=== PATIENT | female | born 1970 | race Caucasian/White ===

== ENCOUNTER → 2020-04-19 | Outpatient (CLI) | payer OTHER ==
--- NOTE | 2020-04-19 12:48 | CARD ---
MR#: [id number] Date of Study: 04/19/2020 Ordering Physician: KASEY OLVERA, Referring Physician: KASEY OLVERA, Tech: Julia Parkinson APPROVED REPORT EXAM: Two-dimensional and M-mode echocardiogram with Doppler and color Doppler. Other Information Quality : AverageHR: 74bpm INDICATION Dyspnea Murmur RISK FACTORS Hypertension 2D DIMENSIONS RVDd3.1 (2.9-3.5cm)Left Atrium(2D)4.2 (1.6-4.0cm) IVSd1.1 (0.7-1.1cm)Aortic Root(2D)3.0 (2.0-3.7cm) LVDd4.6 (3.9-5.9cm)LVOT Diameter2.0 (1.8-2.4cm) PWd1.0 (0.7-1.1cm)LVDs2.3 (2.5-4.0cm) FS (%) 49.8 %SV78.4 ml LVEF(%)81.2 (>50%) Aortic Valve AoV Peak Jose Manuel.148.3cm/sAoV VTI27.3cm AO Peak GR.8.8mmHgLVOT Peak Jose Manuel.104.8cm/s LVOT VTI 24.43cmAO Mean GR.4mmHg SVETA (VMAX)1.54mh1LAX (VTI)2.75cm2 Mitral Valve MV E Djzwgycf33.1cm/sMV DECEL [id number] MV A Ionwcjrn82.1cm/sMV E Mean Gr.2mmHg MV ABT66xoI/A Ratio1.3 MVA (PHT)3.18cm2 TDI E/Lateral E'7.1E/Medial E'8.0 Pulmonary Valve PV Peak Cygtomuc490.3cm/sPV Peak Grad.5mmHg Tricuspid Valve TR P. Spkrwhmi867pt/sRAP IVKBCEHP9xmIa TR Peak Gr.83odUjJYNY00caMa Pulmonary Vein S1 Mxtiyzxp80.7cm/sD2 Ansjrxlb74.0cm/s PVa [id number] LEFT VENTRICLE The left ventricle is normal size. There is normal left ventricular wall thickness. The left ventricu lar systolic function is normal and the ejection fraction is within normal range. The Ejection Fracti on is 65%. There is normal LV segmental wall motion. Transmitral Doppler flow pattern is Grade II-pse udonormal filling dynamics. RIGHT VENTRICLE The right ventricle is normal size. There is normal right ventricular wall thickness. The right ventr icular systolic function is normal. ATRIA The left atrium size is normal. The right atrium size is normal. The interatrial septum is intact wit h no evidence for an atrial septal defect or patent foramen ovale as noted on 2-D or Doppler imaging. AORTIC VALVE The aortic valve is normal in structure and function. Doppler and Color Flow revealed no significant aortic regurgitation. There is no significant aortic valvular stenosis. MITRAL VALVE The mitral valve is normal in structure and function. There is no evidence of mitral valve prolapse. There is no mitral valve stenosis. Doppler and Color-flow revealed trace mitral regurgitation. TRICUSPID VALVE The tricuspid valve is normal in structure and function. Doppler and Color Flow revealed trace tricus pid regurgitation with an estimated PAP of 34 mmHg. There is no tricuspid valve stenosis. PULMONIC VALVE The pulmonic valve is not well visualized. Doppler and Color Flow revealed no pulmonic valvular regur gitation. There is no pulmonic valvular stenosis. GREAT VESSELS The aortic root is normal in size. The ascending aorta is normal in size. The IVC is normal in size a nd collapses >50% with inspiration. PERICARDIAL EFFUSION There is no evidence of significant pericardial effusion. Critical Notification Critical Value: No <Conclusion> The left ventricular systolic function is normal and the ejection fraction is within normal range. Th e Ejection Fraction is 65%. There is normal LV segmental wall motion. Signed by : Jordin Villagomez, Electronically Approved : 04/19/2020 12:47:52
== END ==
LOC: ECHO 10:53
PROVIDERS: ATTEND Internal Medicine Cardiovascular Disease
DX: R06.02 Shortness of breath (principal); R01.1 Cardiac murmur, unspecified
CPT/HCPCS: 93306

== ENCOUNTER → 2021-09-10 | Outpatient (CLI) | payer OTHER ==
--- NOTE | 2021-09-11 17:03 | RAD ---
MR#: [id number] Date of Study: 09/10/2021 Ordering Physician: KASEY OLVERA, Referring Physician: KASEY OLVERA, Tech: Julia Bowman, MANUEL, RVT, RTR APPROVED REPORT Patient Location: OUT-PATIENT Indications Claudication:Bilaterally SEVERE FOOT PAIN VELOCITY AND DOPPLER WAVEFORM ANALYSIS RIGHT cm/secWaveformSeverity LEFT cm/secWaveform Severity pCFA 119.4pCFA 147.2 Prof Fem Art. 83.3Prof Fem Art. 87.9 Fem Art Prox. 96.2Fem Art Prox. 93.5 Fem Art Mid. 111.1Fem Art Mid. 95.3 Fem Art Dist. 90.7Fem Art Dist. 89.8 Pop Art(AK) 60.7Pop Art(AK) 81.4 [employer]LE [employer]ER Prox. 51.2PTA Prox. 52.1 STAPLE [employer] W[employer]ER Dist. 15.8PTA Dist. 14.7 Per Art Prox. 53.7Per Art Prox. 51.5 KEVIN Prox. 46.7ATA Prox. 51.5 DPA 65DPA 34 Findings Grayscale images the bilateral lower extremity arterial vessels demonstrate mild diffuse atherosclero tic plaque. Waveforms are mostly triphasic and biphasic above the knee. There was no obstruction above the knee bilaterally. Below the knee there are diminished waveforms and velocities in the distal posterior tibial artery walters ggestive of greater than 50% stenosis but otherwise there is two-vessel robust runoff in the form of peroneal and anterior tibial vessels. Critical Notification Critical Value: No <Conclusion> 1. No significant above-knee disease bilaterally 2. 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 Clinical correlation recommended Signed by : Jordin Villagomez, Electronically Approved : 09/11/2021 17:03:01
== END ==
LOC: US 12:58
PROVIDERS: ATTEND Internal Medicine Cardiovascular Disease
DX: I70.203 Unspecified atherosclerosis of native arteries of extremities, bilateral legs (principal); R06.9 Unspecified abnormalities of breathing
CPT/HCPCS: 93925

== ENCOUNTER → 2021-09-25 | Outpatient (CLI) | payer OTHER ==
--- NOTE | 2021-09-25 09:44 | RAD ---
MR#: [id number] Date of Study: 09/25/2021 Ordering Physician: KASEY OLVERA, Referring Physician: KASEY OLVERA, Tech: Mary Fair RVT, [facility] APPROVED REPORT Patient Location : OUT-PATIENT Indications Lower Extremity Edema : Findings Limited grayscale images of the bilateral saphenofemoral junctions are grossly unremarkable. The right great saphenous vein measures 7.2 mm and the left great saphenous vein measures 3.7 mm. No evidence of reflux in the bilateral greater and lesser saphenous veins. Critical Notification Critical Value: No <Conclusion> 1. Negative for reflux in the bilateral greater and lesser saphenous veins. Signed by : Jordin Villagomez, Electronically Approved : 09/25/2021 09:43:54
--- NOTE | 2021-09-25 09:46 | RAD ---
MR#: [id number] Date of Study: 09/25/2021 Ordering Physician: KASEY OLVERA, Referring Physician: KASEY OLVERA, Tech: Mary Fair RVT, [facility] APPROVED REPORT Bilateral Lower Extremity Venous Study for DVT Patient Location: OUT-PATIENT Indications Lower Extremity Edema: Vein Imaging (Right) CFV (R): Compressible SFJ (R): Compressible FEM (R): Compressible POP (R): Compressible DFV (R): Compressible PTV (R): Compressible GSV (R): Compressible Peroneals (R): Compressible Vein Imaging (Left) CFV (L): Compressible SFJ (L): Compressible FEM (L): Compressible POP (L): Compressible DFV (L): Compressible PTV (L): Compressible GSV (L): Compressible Peroneals (L): Compressible Doppler Evaluation (Right) CFV (R): Phasic POP (R):Phasic Doppler Evaluation (Left) CFV (L):Phasic POP (L):Phasic Findings Grayscale images of the bilateral deep veins of the lower extremities were technically limited. Grossly no obvious thrombus with normal compressibility is noted in the bilateral common femoral, pop liteal veins. The bilateral superficial femoral veins were not well visualized but grossly appear to be compressibl e with normal phasic flow. Bilateral below-knee veins demonstrate spontaneous flow but were not well visualized. Critical Notification Critical Value: No <Conclusion> 1. Grossly no evidence of DVT 2. Technically difficult study Signed by : Jordin Villagomez, Electronically Approved : 09/25/2021 09:45:39
== END ==
LOC: US 06:52
PROVIDERS: ATTEND Internal Medicine Cardiovascular Disease
DX: R60.0 Localized edema (principal)
CPT/HCPCS: 93970